=== PATIENT | male | born 1980 | race Caucasian/White ===

== ENCOUNTER 2021-10-02 07:47 | Emergency (ER) | payer OTHER ==
[2021-10-02] MEDS ORDERED: KETOROLAC 30 MG/ML INJ ONE (08:55)
[2021-10-02] MEDS ORDERED: dexAMETHasone 10 MG/ML VIAL ONE (08:55)
[2021-10-02] MEDS ORDERED: DIAZEPAM 5 MG TABLET ONE (08:55)
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
== END 2021-10-02 11:40 | disposition home or self-care (01) ==
LOC: ER 07:47
DX: S29.012A Strain of muscle and tendon of back wall of thorax, initial encounter (principal); S39.012A Strain of muscle, fascia and tendon of lower back, initial encounter; V49.40XA Driver injured in collision with unspecified motor vehicles in traffic accident, initial encounter
CPT/HCPCS: 70450; 72125; 72100; 72070; 96372; 99283; J1100

== ENCOUNTER 2021-10-15 15:39 | Emergency (ER) | payer OTHER, SELFPAY ==
--- NOTE | 2021-10-15 17:22 | ER ---
Nurse's Notes [facility] Name: Cornell Sebastian Age: 41 yrs Sex: Male : 1980 Arrival Date: 10/15/2021 Time: 15:44 Bed Waiting Private MD: Diagnosis: Presentation: 10/15 16:30 Chief complaint: Patient states: for about three days ABD pain, body aches, fever with vg1 NVD. States has not been take diabetic medication due to insurance and BG was 300's around 1600. FSBG taken in triage of 213 mg/dL. Pt also states excessive thirst and dry mouth. Took Tylenol at 1200 for temperature of 101.0. Coronavirus screen: Vaccine status: Patient reports being unvaccinated. Client denies travel out of the [place] in the last 14 days. Ebola Screen: Patient denies exposure to infectious person. Patient denies travel to an Ebola-affected area in the 21 days before illness onset. Initial Sepsis Screen: Does the patient meet any 2 criteria? No. Patient's initial sepsis screen is negative. Does the patient have a suspected source of infection? No. Patient's initial sepsis screen is negative. Risk Assessment: Do you want to hurt yourself or someone else? Patient reports no desire to harm self or others. Onset of symptoms was October 12, 2021. 16:30 Method Of Arrival: Ambulatory vg1 16:30 Acuity: VAUGHN 3 vg1 Triage Assessment: 16:36 General: Appears uncomfortable, Behavior is calm, cooperative. Pain: Complains of pain vg1 in right lower quadrant and left lower quadrant Pain currently is 8 out of 10 on a pain scale. GI: Reports diarrhea, nausea, vomiting. Historical: - Allergies: 16:33 No Known Allergies; vg1 - Home Meds: 16:33 Invokana oral [Active]; Exenatide [Active]; vg1 - PMHx: 16:33 Diabetes mellitus; Type 2; Hypercholesterolemia; vg1 16:36 Born with one Kidney; vg1 - Immunization history:: Client reports having NOT received the Covid vaccine. - Social history:: Smoking status: Patient denies any tobacco usage or history of. Vital Signs: 16:30 BP 116 / 69; Pulse 110; Resp 20; Temp 100.0(O); Pulse Ox 97% on R/A; Weight 138.35 kg; vg1 Height 5 ft. 10 in. (177.80 cm); Pain 8/10; 16:30 Body Mass Index 43.76 (138.35 kg, 177.80 cm) vg1 ED Course: 15:44 Patient arrived in ED. mr 15:54 Maxi Ceballos PA is PHCP. cp 15:54 Lauro Da Silva MD is Attending Physician. cp 16:33 Triage completed. vg1 16:36 Arm band placed on. vg1 Administered Medications: No medications were administered Outcome: 17:22 Patient left the ED. vg1 Signatures: Kelin Villalta mr Maxi Ceballos PA PA cp Garcia, Victoria, RN RN vg1
[2021-10-15 17:26] VITALS: BP 116/69; TEMP 100; O2SAT 97
--- NOTE | 2021-10-16 17:22 | EDPHYS ---
Physician Documentation [facility] Name: Cornell Sebastian Age: 41 yrs Sex: Male : 1980 Arrival Date: 10/15/2021 Time: 15:44 Bed Waiting Private MD: ED Physician Lauro Da Silva HPI: 10/14 16:45 This 41 yrs old Male presents to ER via Ambulatory with complaints of Diarrhea, High cp Blood Sugar, Abdominal Pain. 16:45 The patient presents to the emergency department with nausea, that is moderate, cp vomiting, that is intermittent, diarrhea, that is intermittent. 16:45 Onset: The symptoms/episode began/occurred 3 day(s) ago. cp 16:45 Possible causes: unknown. The patient or guardian reports hyperglycemia. cp Historical: - Allergies: 10/15 16:33 No Known Allergies; vg1 - Home Meds: 16:33 Invokana oral [Active]; Exenatide [Active]; vg1 - PMHx: 16:33 Diabetes mellitus; Type 2; Hypercholesterolemia; vg1 16:36 Born with one Kidney; vg1 - Immunization history:: Client reports having NOT received the Covid vaccine. - Social history:: Smoking status: Patient denies any tobacco usage or history of. ROS: 10/14 16:50 Constitutional: Positive for body aches, Negative for poor PO intake. cp 16:50 Eyes: Negative for injury, pain, redness, and discharge. cp 16:50 ENT: Negative for drainage from ear(s), ear pain, sore throat, difficulty swallowing, difficulty handling secretions. 16:50 Cardiovascular: Negative for chest pain. 16:50 Respiratory: Negative for cough, shortness of breath, wheezing. 16:50 Abdomen/GI: Positive for abdominal pain, nausea, vomiting, and diarrhea, Negative for hematemesis, black/tarry stool, rectal bleeding. 16:50 Back: Negative for injury or acute deformity. 16:50 Neuro: Negative for altered mental status, headache, weakness. 16:50 All other systems are negative. Exam: 16:50 Constitutional: The patient appears in no acute distress, alert, awake, cp non-diaphoretic, non-toxic, well developed, well nourished, obese, uncomfortable. 16:50 Head/Face: Normocephalic, atraumatic. cp 16:50 Eyes: Periorbital structures: appear normal, Conjunctiva: normal, no exudate, no injection, Sclera: no appreciated abnormality, Lids and lashes: appear normal, bilaterally. 16:50 ENT: External ear(s): are unremarkable, Nose: is normal, Posterior pharynx: Airway: no evidence of obstruction, patent. 16:50 Neck: ROM/movement: is normal, is supple, without pain, no range of motions limitations. 16:50 Chest/axilla: Inspection: normal, Palpation: is normal, no crepitus, no tenderness. 16:50 Cardiovascular: Rate: tachycardic, Rhythm: regular. 16:50 Respiratory: the patient does not display signs of respiratory distress, Respirations: normal, no use of accessory muscles, no retractions, labored breathing, is not present, Breath sounds: are clear throughout, no decreased breath sounds, no stridor, no wheezing. 16:50 Abdomen/GI: Inspection: obese Bowel sounds: active, all quadrants, Palpation: soft, in all quadrants, moderate abdominal tenderness, in the right lower quadrant and left lower quadrant, rebound tenderness, is not appreciated, involuntary guarding, is not appreciated. 16:50 Back: CVA tenderness, is absent. 16:50 Neuro: Orientation: to person, place \T\ time. Mentation: is normal. Vital Signs: 10/15 16:30 BP 116 / 69; Pulse 110; Resp 20; Temp 100.0(O); Pulse Ox 97% on R/A; Weight 138.35 kg; vg1 Height 5 ft. 10 in. (177.80 cm); Pain 8/10; 16:30 Body Mass Index 43.76 (138.35 kg, 177.80 cm) vg1 MDM: 10/15 16:41 Order name: Glucose, Ancillary Testing; Complete Time: 23:57 EDMS 10/15 16:37 Order name: IV Saline Lock vg1 10/15 16:37 Order name: Labs collected and sent vg1 Administered Medications: No medications were administered Disposition Summary: 10/15/21 17:22 Eloped Disposition: after being seen by provider vg1 Problem: new vg1 Reason: unknown vg1 Condition: Fair vg1 Signatures: Dispatcher [employer] EDPA Maxi Ceballos PA PA cp Garcia, Victoria, RN RN vg1
== END 2021-10-15 17:22 | disposition left against medical advice (07) ==
LOC: ER 15:39
DX: R11.2 Nausea with vomiting, unspecified (principal); E11.9 Type 2 diabetes mellitus without complications; E78.00 Pure hypercholesterolemia, unspecified
CPT/HCPCS: 82947; 99281

== ENCOUNTER 2021-10-17 11:04 | Emergency (ER) | payer OTHER ==
[2021-10-17] MEDS ORDERED: NA CHLORIDE 0.9% 1,000 ML ONE (12:21)
[2021-10-17] MEDS ORDERED: FAMOTIDINE 20 MG/2 ML VIAL IV ONE (12:21)
[2021-10-17] MEDS ORDERED: ONDANSETRON 4 MG/2 ML VIAL ONE (12:21)
[2021-10-17 12:44] LABS: Absolute Lymphocytes (CBC) 1.7 K/uL (0.7-4.9); Hematocrit 45.4 % (39.6-49.0); Lymphocytes % 18.1 % (15.3-44.8); MPV 8.8 fL (7.6-11.3); RBC Red Blood Cell Count 5.18 M/uL (4.33-5.43)
[2021-10-17 13:08] LABS: Albumin 3.4 g/dL (3.4-5.0); Bilirubin Total 0.4 mg/dL (0.2-1.0); Potassium 3.5 mmol/L (3.5-5.1); Protein, Total 7.8 g/dL (6.4-8.2)
--- NOTE | 2021-10-17 13:44 | RAD REPORT ---
EXAM DESCRIPTION: CT - Abdomen Pelvis W Contrast - 10/17/2021 1:26 pm CLINICAL HISTORY: Abdominal pain, acute, nonlocalized COMPARISON: No comparisons TECHNIQUE: Biphasic, helical CT imaging of the abdomen and pelvis was performed following 60 ml non- ionic IV contrast. No oral contrast was administered. All CT scans are performed using dose optimization technique as appropriate and may include automated exposure control or mA/KV adjustment according to patient size. FINDINGS: No suspicious findings in the lung bases. Liver shows diffuse fatty infiltration with minimal sparing near the gallbladder fossa. No focal live r lesion. Portal vein is normal. Contracted gallbladder shows no suspicious finding. No biliary tree dilatation. Spleen and pancreas show no suspicious findings. Patient has a single right kidney showing normal enhancement. A 14 millimeter anterior mid cortical c yst is present. No hydronephrosis present and no obstructing or nonobstructing calculi. No pyelonephr itis or acute parenchymal process. Partially filled urinary bladder shows no suspicious findings. No adrenal abnormalities. No gastric dilatation or gastric wall thickening. No small bowel abnormality. The appendix is unremar kable. From cecum to the mid transverse colon mild wall thickening and edema are evident. Trace amoun t of stranding or edema seen in the adjacent fat. Left-side of the colon is unremarkable. No free air, free fluid or pneumatosis. No mass or bulky lymphadenopathy seen. Approximately 3.5 centimeter diameter umbilical hernia is present. Fat appears mildly congested or ed ematous. Neck of the hernia is approximately 1.5 cm. The fat just deep to the abdominal wall also noemi ears slightly congested or edematous. Herniation of omentum into the hernia defect is suspected. L5-S1 degenerative disc disease. IMPRESSION: Patient has a 3.5 centimeter umbilical hernia. Herniation of omentum into the defect is suspected. Herniated fatty tissue shows mild congestion or edema within the hernia and just deep to t he abdominal wall. No bowel involvement. Right-side of the colon from cecum to mid transverse colon shows a mild wall thickening or edema kaleb bright. There is trace amount of stranding in the adjacent fat. Nonspecific colitis is suspected and nee ds correlation with clinical presentation and any history of UC or inflammatory bowel disease.
--- NOTE | 2021-10-17 14:03 | ER ---
Nurse's Notes [facility] Name: Cornell Sebastian Age: 41 yrs Sex: Male : 1980 Arrival Date: 10/17/2021 Time: 11:11 Bed 8 Private MD: Diagnosis: Other specified noninfective gastroenteritis and colitis Presentation: 10/17 11:32 Chief complaint: Patient states: upper abd pain, nausea/vomiting/diarrhea, fever x 4 ss days ago. Coronavirus screen: diarrhea, nausea, vomiting. Ebola Screen: No symptoms or risks identified at this time. Initial Sepsis Screen: Does the patient meet any 2 criteria? HR > 90 bpm. Does the patient have a suspected source of infection? No. Patient's initial sepsis screen is negative. Risk Assessment: Do you want to hurt yourself or someone else? Patient reports no desire to harm self or others. Onset of symptoms was September 2021. 11:32 Method Of Arrival: Ambulatory ss 11:32 Acuity: VAUGHN 3 ss Triage Assessment: 11:40 General: Appears in no apparent distress. uncomfortable, obese, Behavior is calm, bp cooperative, appropriate for age. Pain: Complains of pain in abdomen. EENT: No deficits noted. Neuro: No deficits noted. Cardiovascular: No deficits noted. Respiratory: No deficits noted. GI: Reports nausea, vomiting. : No signs and/or symptoms were reported regarding the genitourinary system. Derm: No deficits noted. Musculoskeletal: No deficits noted. Historical: - Allergies: 11:33 No Known Allergies; ss - Home Meds: 11:33 None [Active]; ss - PMHx: 11:33 Born with ONE kidney; diabetes mellitus ; Type 2; Hypercholesterolemia; ss - PSHx: 11:34 right wrist; back sx; ss - Immunization history:: Adult Immunizations unknown. - Social history:: Smoking status: Patient denies any tobacco usage or history of. Screenin:30 Abuse screen: Denies threats or abuse. Denies injuries from another. Nutritional bp screening: No deficits noted. Tuberculosis screening: No symptoms or risk factors identified. Fall Risk None identified. Assessment: 11:40 General: SEE TRIAGE NOTE. bp 12:58 Reassessment: No changes from previously documented assessment. Patient and/or family bp updated on plan of care and expected duration. Pain level reassessed. 14:31 Reassessment: PT D/C HOME AMBULATORY WITH FAMILY, DX WITH COLITIS. bp Vital Signs: 11:32 BP 120 / 79; Pulse 114; Resp 18 S; Temp 98.7(O); Pulse Ox 97% on R/A; Weight 138.35 kg ss (R); Height 5 ft. 10 in. (177.80 cm) (R); 12:30 BP 117 / 85; Pulse 94; Resp 17; Pulse Ox 94% ; bp 14:31 BP 126 / 82; Pulse 86; Resp 16; Pulse Ox 96% ; bp 11:32 Body Mass Index 43.76 (138.35 kg, 177.80 cm) ED Course: 11:11 Patient arrived in ED. am2 11:12 [facility]NP [facility] 7 11:12 Daren Chris MD is Attending Physician. 7 11:32 Arm band placed on. ss 11:33 Triage completed. ss 12:05 Shahriar Cohn, RN is Primary Nurse. bp 12:30 Patient has correct armband on for positive identification. Bed in low position. Call bp light in reach. Side rails up X2. Adult w/ patient. 12:30 Inserted saline lock: 20 gauge in right antecubital area, using aseptic technique. bp Blood collected. 13:28 CT Abd/Pelvis - IV Contrast Only In Process Unspecified. EDMS 14:31 No provider procedures requiring assistance completed. IV discontinued, intact, bp bleeding controlled, No redness/swelling at site. Pressure dressing applied. Administered Medications: 12:30 Drug: NS 0.9% 1000 ml Route: IV; Rate: 1 bolus; Site: right antecubital; bp 14:33 Follow up: IV Status: Completed infusion; IV Intake: 1000ml bp 12:30 Drug: Pepcid (famotidine) 20 mg Route: IVP; Site: right antecubital; bp 12:59 Follow up: Response: No adverse reaction bp 12:30 Drug: Zofran (Ondansetron) 4 mg Route: IVP; Site: right antecubital; bp 13:00 Follow up: Response: No adverse reaction bp Medication: 12:30 VIS not applicable for this client. bp Intake: 14:33 IV: 1000ml; Total: 1000ml. bp Outcome: 14:02 Discharge ordered by MD. peters 14:31 Discharged to home ambulatory, with family. bp 14:31 Condition: stable 14:31 Discharge instructions given to patient, Instructed on discharge instructions, follow up and referral plans. medication usage, Demonstrated understanding of instructions, follow-up care, medications, Prescriptions given X 4. 14:33 Patient left the ED. bp Signatures: Dispatcher [employer] EDME Caroline Kim RN RN Ban De Souza Brian, RN RN Kathy Mireles FNP FNP [id number]
--- NOTE | 2021-10-17 14:03 | EDPHYS ---
Physician Documentation [facility] Name: Cornell Sebastian Age: 41 yrs Sex: Male : 1980 Arrival Date: 10/17/2021 Time: 11:11 Bed 8 Private MD: ED Physician Darne Chris HPI: 10/17 11:40 This 41 yrs old Male presents to ER via Ambulatory with complaints of Abdominal Pain, jh7 Diarrhea. 11:40 The patient presents with abdominal pain in the upper abdomen. Onset: The jh7 symptoms/episode began/occurred 4 day(s) ago. Associated signs and symptoms: Pertinent positives: nausea, vomiting, and diarrhea, fever, Pertinent negatives: headache, shortness of breath, vomiting. Patient presents for upper abdominal pain, nausea, vomiting, and diarrhea for 4 days. Also reports that he had a fever last night. . Historical: - Allergies: 11:33 No Known Allergies; ss - Home Meds: 11:33 None [Active]; ss - PMHx: 11:33 Born with ONE kidney; diabetes mellitus ; Type 2; Hypercholesterolemia; ss - PSHx: 11:34 right wrist; back sx; ss - Immunization history:: Adult Immunizations unknown. - Social history:: Smoking status: Patient denies any tobacco usage or history of. ROS: 11:40 ENT: Negative for injury, pain, and discharge, Neck: Negative for injury, pain, and jh7 swelling, Cardiovascular: Negative for chest pain, palpitations, and edema, Respiratory: Negative for shortness of breath, cough, wheezing, and pleuritic chest pain, Skin: Negative for injury, rash, and discoloration, Neuro: Negative for headache, weakness, numbness, tingling, and seizure. 11:40 Constitutional: Positive for fever, Negative for body aches, chills, weight loss. 11:40 Abdomen/GI: Positive for abdominal pain, nausea, vomiting, and diarrhea, abdominal cramps, Negative for constipation. 11:40 All other systems are negative. Exam: 11:40 Constitutional: This is a well developed, well nourished patient who is awake, alert, jh7 and in no acute distress. ENT: Nares patent. No nasal discharge, no septal abnormalities noted. Oropharynx with no redness, swelling, or masses, exudates, or evidence of obstruction, uvula midline. Mucous membranes moist. Neck: Trachea midline, no thyromegaly or masses palpated, and no cervical lymphadenopathy. Supple, full range of motion without nuchal rigidity, or vertebral point tenderness. No Meningismus. Cardiovascular: Regular rate and rhythm with a normal S1 and S2. No gallops, murmurs, or rubs. Normal PMI, no JVD. No pulse deficits. Respiratory: Lungs have equal breath sounds bilaterally, clear to auscultation and percussion. No rales, rhonchi or wheezes noted. No increased work of breathing, no retractions or nasal flaring. Back: No spinal tenderness. No costovertebral tenderness. Full range of motion. Skin: Warm, dry with normal turgor. Normal color with no rashes, no lesions, and no evidence of cellulitis. Neuro: Awake and alert, GCS 15, oriented to person, place, time, and situation. . Sensory grossly intact. Normal gait. 11:40 Abdomen/GI: Inspection: abdomen appears normal, Bowel sounds: normal, Palpation: mild abdominal tenderness, in the right upper quadrant and left upper quadrant. Vital Signs: 11:32 BP 120 / 79; Pulse 114; Resp 18 S; Temp 98.7(O); Pulse Ox 97% on R/A; Weight 138.35 kg ss (R); Height 5 ft. 10 in. (177.80 cm) (R); 12:30 BP 117 / 85; Pulse 94; Resp 17; Pulse Ox 94% ; bp 14:31 BP 126 / 82; Pulse 86; Resp 16; Pulse Ox 96% ; bp 11:32 Body Mass Index 43.76 (138.35 kg, 177.80 cm) MDM: 11:36 Patient medically screened. [facility] 14:05 Data reviewed: vital signs, nurses notes, lab test result(s), radiologic studies, CT [facility] scan. Data interpreted: Pulse oximetry: is 96 %. Interpretation: normal. Counseling: I had a detailed discussion with the patient and/or guardian regarding: the historical points, exam findings, and any diagnostic results supporting the discharge/admit diagnosis, to return to the emergency department if symptoms worsen or persist or if there are any questions or concerns that arise at home. Response to treatment: the patient's symptoms have markedly improved after treatment. ED course: The patient remained hemodynamically stable throughout the ER visit. There were no acute findings on his labs, and the CT scan showed colitis. The patient's vital signs remained stable, and he was able to tolerate p.o. fluids. Prescribed Cipro and Flagyl. Advised the patient to follow-up with his PCP. If his symptoms return, worsen, or any new concerning symptoms develop, he is to return to the ER for further eval. The patient agreed with the plan of care.. 10/17 11:49 Order name: CBC with Diff; Complete Time: 13:10 [facility] 10/17 11:49 Order name: CMP; Complete Time: 13: [facility] 10/17 11:49 Order name: Lipase; Complete Time: 13: [facility] 10/17 11:49 Order name: CT Abd/Pelvis - IV Contrast Only; Complete Time: 13:52 [facility] 10/17 11:50 Order name: IV Saline Lock; Complete Time: 12:33 [facility] 10/17 11:50 Order name: Labs collected and sent; Complete Time: 12:33 [facility] 10/17 13:59 Order name: PO challenge; Complete Time: 14:07 [facility] Administered Medications: 12:30 Drug: NS 0.9% 1000 ml Route: IV; Rate: 1 bolus; Site: right antecubital; bp 14:33 Follow up: IV Status: Completed infusion; IV Intake: 1000ml bp 12:30 Drug: Pepcid (famotidine) 20 mg Route: IVP; Site: right antecubital; bp 12:59 Follow up: Response: No adverse reaction bp 12:30 Drug: Zofran (Ondansetron) 4 mg Route: IVP; Site: right antecubital; bp 13:00 Follow up: Response: No adverse reaction bp Disposition: 18:24 Co-signature as Attending Physician, Daren Chris MD. rn Disposition Summary: 10/17/21 14:02 Discharge Ordered Location: Home [facility] Problem: new [facility] Symptoms: have improved [facility] Condition: Stable [facility] Diagnosis - Other specified noninfective gastroenteritis and colitis [facility] Followup: [facility] - With: Private Physician - When: 2 - 3 days - Reason: Recheck today's complaints Discharge Instructions: - Discharge Summary Sheet [facility] - Diarrhea, Adult [facility] - Colitis [facility] Forms: - Medication Reconciliation Form [facility] - Thank You Letter [facility] - Antibiotic Education [facility] Prescriptions: - Levsin 0.125 mg Oral tablet - take 1 tablet by ORAL route every 4 hours As needed as needed; 20 tablet; [facility] Refills: 0, Product Selection Permitted - Flagyl 500 mg Oral Tablet - take 1 tablet by ORAL route every 12 hours for 7 days; 14 tablet; Refills: 0, [facility] Product Selection Permitted - Zofran 4 mg Oral Tablet - take 1 tablet by ORAL route every 12 hours As needed; 20 tablet; Refills: 0, [facility] Product Selection Permitted - Cipro 500 mg Oral Tablet - take 1 tablet by ORAL route every 12 hours for 7 days; 14 tablet; Refills: 0, [facility] Product Selection Permitted Signatures: Dispatcher [employer] EDDaren Jensen MD MD rn Smirch, Shelby, RN RN ss Peltier, Brian, RN RN Kathy Mireles, OPHTHALMIC TECHNICIAN APPRENTICE [place] [id number]
[2021-10-17 14:44] VITALS: TEMP 98.7
[2021-10-17 14:47] VITALS: BP 126/82; O2SAT 96
== END 2021-10-17 14:33 | disposition home or self-care (01) ==
LOC: ER 11:04
DX: K52.89 Other specified noninfective gastroenteritis and colitis (principal); E11.9 Type 2 diabetes mellitus without complications
CPT/HCPCS: 85025; 36415; 83690; 80053; 74177; Q9967; J7030; J2405; J3490; 96361; 96374; 96375; 99284